=== PATIENT | female | born 1990 | race African-American/Black ===

== ENCOUNTER 2021-12-01 19:33 | Emergency (ER) | payer OTHER ==
[~2021-12-01] VITALS: Ht 147.3 cm; Wt 88.5 kg
== END 2021-12-01 20:16 | disposition home or self-care (01) ==
LOC: ER 19:53
DX: R50.9 Fever, unspecified (principal); U07.1 COVID-19; R11.0 Nausea; E11.9 Type 2 diabetes mellitus without complications
CPT/HCPCS: 99282